=== PATIENT | male | born 1960 | race African-American/Black ===

== ENCOUNTER 2016-09-19 15:50 | Emergency (ER) | payer OTHER ==
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
== END 2016-09-19 18:18 | disposition home or self-care (01) ==
LOC: CFTX 15:50
DX: S06.0X9A Concussion with loss of consciousness of unspecified duration, initial encounter (principal); S16.1XXA Strain of muscle, fascia and tendon at neck level, initial encounter; S39.012A Strain of muscle, fascia and tendon of lower back, initial encounter; S29.012A Strain of muscle and tendon of back wall of thorax, initial encounter; S20.219A Contusion of unspecified front wall of thorax, initial encounter; S00.91XA Abrasion of unspecified part of head, initial encounter; I10 Essential (primary) hypertension; V43.52XA Car driver injured in collision with other type car in traffic accident, initial encounter
CPT/HCPCS: 70450; 71020; 72072; 72100; 72125; 73030; 96372; 99284; J2270